=== PATIENT | female | born 1965 | race African-American/Black ===

== ENCOUNTER 2018-02-13 08:34 | Emergency (ER) | payer OTHER ==
[2018-02-13 08:47] VITALS: RESP 18; TEMP 98.1
[2018-02-13] MEDS ORDERED: methylPREDNISolone SOD SUCCI 125 MG/2 ML VIAL IV STA (09:36)
[2018-02-13] MEDS ORDERED: diphenhydrAMINE 50 MG/ML 1 ML VIAL IVP STA (09:36)
[2018-02-13 10:01] LABS: Anisocytosis Moderate; Basophils % (A) 0 %; Eosinophils # (A) 0.1 k/uL (0-0.7); Eosinophils % (A) 1 %; HCT 43.7 % (34.0-46.0); HGB 13.9 gm/dL (11.4-16.0); Lymphocytes # (A) 1.6 k/uL (1.0-4.8); Lymphocytes % (A) 15 %; MCH 30.8 pg (25.0-35.0); MCHC 31.9 g/dL (31.0-37.0); MCV 96.3 fL (80.0-100.0); Macrocytosis Moderate; Mean Platelet Volume 7.7; Monocytes # (A) 0.4 k/uL (0-1.0); Monocytes % (A) 4 %; Neutrophils # (A) 8.4 k/uL (1.3-7.7); Neutrophils % (A) 79 %; Platelet Count 156 k/uL (150-450); RBC 4.53 m/uL (3.80-5.40); RDW 22.4 % (11.5-15.5); WBC 10.6 k/uL (3.8-10.6)
[2018-02-13 10:06] LABS: ALT 32 U/L (9-52); AST 29 U/L (14-36); Albumin 3.6 g/dL (3.5-5.0); Alkaline Phosphatase 118 U/L (38-126); Anion Gap 7 mmol/L; Blood Urea Nitrogen 19 mg/dL (7-17); Calcium 9.3 mg/dL (8.4-10.2); Carbon Dioxide 28 mmol/L (22-30); Chloride 108 mmol/L (98-107); Potassium 3.3 mmol/L (3.5-5.1); Sodium 143 mmol/L (137-145); Total Bilirubin 0.5 mg/dL (0.2-1.3); Total Protein 7.1 g/dL (6.3-8.2)
--- NOTE | 2018-02-13 10:13 | ED ---
General Adult HPI - General Chief complaint: Allergic Reaction Stated complaint: POSS ALLERGIC REACTION Time Seen by Provider: 02/13/18 09:06 Source: patient, RN notes reviewed, old records reviewed Mode of arrival: ambulatory Limitations: no limitations - History of Present Illness Initial comments: This Patient is a 52-year-old female with a history of lupus presents emergency department for concerns for ALLERGIC reaction. Patient reports that she recently started CellCept to manage her lupus and rheumatoid arthritis. She was started on with this with her code enforcement officer. Patient states that she has had facial swelling for the past 2 days. She reports she had a previous ALLERGIC reaction to leflunomide last month. Patient states that at that time it is possible damage to her liver. Patient reports that she called her code enforcement officer due to the swelling of her face and they wanted her to come in for evaluation and recheck her liver enzymes and white count. Patient states that she has no tongue swelling. No difficulty breathing or swallowing. Patient denies any recent fever, chills, shortness of breath, chest pain, back pain, abdominal pain, nausea vomiting, numbness or tingling, dysuria or hematuria, constipation or diarrhea, headaches or visual changes, or any other current symptoms - Related Data Home Medications Medication Instructions Recorded Confirmed Acetaminophen [Tylenol] 500 mg PO Q6H PRN 02/13/18 02/13/18 Cholecalciferol (Vitamin D3) 2,000 unit PO DAILY 02/13/18 02/13/18 [Vitamin D3] Famotidine [Pepcid] 20 mg PO BID 02/13/18 02/13/18 Hydrocortisone Cream 1 applic TOPICAL BID 02/13/18 02/13/18 [Hydrocortisone 2.5% Cream] Levothyroxine Sodium [Synthroid] 25 mcg PO DAILY 02/13/18 02/13/18 Mycophenolate Mofetil [Cellcept] 250 mg PO Q12H 02/13/18 02/13/18 Ondansetron [Zofran ODT] 8 mg PO Q8H PRN 02/13/18 02/13/18 Triamcinolone 0.5% Cream [Kenalog 1 applic TOPICAL BID 02/13/18 02/13/18 0.5% Cream] diphenhydrAMINE [Benadryl] 25 - 50 mg PO Q6H PRN 02/13/18 02/13/18 predniSONE 30 mg PO BID 02/13/18 02/13/18 Allergies Allergy/AdvReac Type Severity Reaction Status Date / Time egg Allergy Anaphylaxis Verified 02/13/18 09:14 leflunomide Allergy Rash/Hives Verified 02/13/18 09:14 mycophenolate mofetil Allergy Unknown Verified 02/13/18 09:14 [From CellCept] Review of Systems ROS Statement: Those systems with pertinent positive or pertinent negative responses have been documented in the HPI. ROS Other: All systems not noted in ROS Statement are negative. Past Medical History Past Medical History: Rheumatoid Arthritis (RA), Thyroid Disorder Additional Past Medical History / Comment(s): abnormal transaminases, connective tissue disease overlap syndrome, Lupus History of Any Multi-Drug Resistant Organisms: None Reported Past Surgical History: Hysterectomy, Orthopedic Surgery Additional Past Surgical History / Comment(s): right ankle surgery Past Psychological History: No Psychological Hx Reported Smoking Status: Current every day smoker Past Alcohol Use History: None Reported Past Drug Use History: Marijuana General Exam - General Exam Comments Initial Comments: 52-year-old female. Alert and oriented. Patient appears in no significant distress. Limitations: no limitations General appearance: alert, in no apparent distress Head exam: Present: atraumatic, normocephalic, normal inspection Eye exam: Present: normal appearance, PERRL, EOMI. Absent: scleral icterus, conjunctival injection, periorbital swelling ENT exam: Present: normal exam, normal oropharynx, other (Mood faces consistent with chronic steroid use.) Neck exam: Present: normal inspection. Absent: tenderness, meningismus, lymphadenopathy Respiratory exam: Present: normal lung sounds bilaterally. Absent: respiratory distress, wheezes, rales, rhonchi, stridor Cardiovascular Exam: Present: regular rate, normal rhythm, normal heart sounds. Absent: systolic murmur, diastolic murmur, rubs, gallop, clicks GI/Abdominal exam: Present: soft, normal bowel sounds. Absent: distended, tenderness, guarding, rebound, rigid Extremities exam: Present: normal inspection, full ROM, normal capillary refill. Absent: tenderness, pedal edema, joint swelling, calf tenderness Back exam: Present: normal inspection Neurological exam: Present: alert, oriented X3, CN II-XII intact Psychiatric exam: Present: normal affect, normal mood Skin exam: Present: warm, dry, intact, normal color. Absent: rash Course Vital Signs 02/13/18 08:41 Temperature 98.1 F Pulse Rate 91 Respiratory 18 Rate Blood Pressure 149/99 O2 Sat by Pulse 99 Oximetry Medical Decision Making - Medical Decision Making Patient 60-year-old female with concerns for ALLERGIC reaction to CellCept. Patient had been on this medication for the past week. She stopped it 2 days ago after she started a facial swelling. Patient reports with a previous ALLERGIC reaction to other rheumatologic drug she had liver disease. Patient reports that she was sent here by her senior instrumentation engineer have his labs checked and showed some cramping again. She is currently on prednisone 60 mg and Benadryl when necessary. Patient does have some swelling of her cheeks, consistent with coronel facies. She also has a slight erythematous rash over her cheeks. The Patient had IV fluids and lab work was obtained. White blood cell count was normal. Her previous white count due to steroid use was 17 1 week ago. At this time is 10. She did have a low blood sugar of 30. When it was rechecked after lab called with critical results with 75. She was then given a snack and this will be rechecked. She states she had no significant symptoms related to low blood sugar. She has no swelling of the tongue. No difficulty breathing or swallowing. She is given a dose of IV solumedrol and Benadryl here. I did discuss at this time her liver enzymes and lab work was otherwise unremarkable. 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 - Lab Data Result diagrams: 02/13/18 09:00 02/13/18 09:00 Lab Results 02/13/18 02/13/18 Range/Units 09:00 09:00 WBC 10.6 (3.8-10.6) k/uL RBC 4.53 (3.80-5.40) m/uL Hgb 13.9 (11.4-16.0) gm/dL Hct 43.7 (34.0-46.0) % MCV 96.3 (80.0-100.0) fL MCH 30.8 (25.0-35.0) pg MCHC 31.9 (31.0-37.0) g/dL RDW 22.4 H (11.5-15.5) % Plt Count 156 (150-450) k/uL Neutrophils % 79 % Lymphocytes % 15 % Monocytes % 4 % Eosinophils % 1 % Basophils % 0 % Neutrophils # 8.4 H (1.3-7.7) k/uL Lymphocytes # 1.6 (1.0-4.8) k/uL Monocytes # 0.4 (0-1.0) k/uL Eosinophils # 0.1 (0-0.7) k/uL Basophils # 0.0 (0-0.2) k/uL Anisocytosis Moderate Macrocytosis Moderate Sodium 143 (137-145) mmol/L Potassium 3.3 L (3.5-5.1) mmol/L Chloride 108 H (98-107) mmol/L Carbon Dioxide 28 (22-30) mmol/L Anion Gap 7 mmol/L BUN 19 H (7-17) mg/dL Creatinine 0.57 (0.52-1.04) mg/dL Est GFR (CKD-EPI)AfAm >90 (>60 ml/min/1.73 sqM) Est GFR (CKD-EPI)NonAf >90 (>60 ml/min/1.73 sqM) Glucose 35 L* (74-99) mg/dL Calcium 9.3 (8.4-10.2) mg/dL Total Bilirubin 0.5 (0.2-1.3) mg/dL AST 29 (14-36) U/L ALT 32 (9-52) U/L Alkaline Phosphatase 118 (38-126) U/L Total Protein 7.1 (6.3-8.2) g/dL Albumin 3.6 (3.5-5.0) g/dL Disposition Clinical Impression: Hypoglycemia, Allergic reaction Disposition: HOME SELF-CARE Condition: Good Instructions: General Allergic Reaction (ED) Additional Instructions: Continue as prescribed steroids from code enforcement officer. Follow-up promptly with dermatology and primary care physician. Return to emergency department if any alarming signs or symptoms occur. Is patient prescribed a controlled substance at d/c from ED?: No Referrals: Nonstaff,Physician [Primary Care Provider] - 1-2 days Time of Disposition: 10:43
[2018-02-13 10:22] LABS: Glucose 35 mg/dL (74-99)
[2018-02-13 10:48] LABS: Glucose,Whole Blood 74 mg/dL (75-99)
[2018-02-13 11:03] VITALS: BP 144/84; PULSE 87
== END 2018-02-13 11:03 | disposition home or self-care (01) ==
LOC: EC 08:34
DX: T78.40XA Allergy, unspecified, initial encounter (principal); E16.2 Hypoglycemia, unspecified; M06.9 Rheumatoid arthritis, unspecified; E07.9 Disorder of thyroid, unspecified; M32.9 Systemic lupus erythematosus, unspecified; F17.200 Nicotine dependence, unspecified, uncomplicated; Z79.52 Long term (current) use of systemic steroids; Z79.899 Other long term (current) drug therapy; Z91.012 Allergy to eggs; Z88.8 Allergy status to other drugs, medicaments and biological substances
CPT/HCPCS: 36415; 80053; 85025; 96374; 96375; 99284

== ENCOUNTER → 2018-04-27 | Outpatient (CLI) | payer OTHER ==
[2018-04-27 21:32] LABS: DNA Double-Stranded NEGATIVE (NEGATIVE)
[2018-04-28 13:14] LABS: Complement C3 69.1 mg/dL (80.0-207.0)
== END | disposition home or self-care (01) ==
LOC: LABWHC1 11:14
DX: M32.9 Systemic lupus erythematosus, unspecified (principal)
CPT/HCPCS: 36415; 82550; 85652; 86160; 86225

== ENCOUNTER → 2018-05-01 | Outpatient (CLI) | payer OTHER ==
[2018-05-01 08:07] LABS: Basophils % (A) 0 %; Eosinophils % (A) 0 %; HCT 44.2 % (34.0-46.0); HGB 14.7 gm/dL (11.4-16.0); Lymphocytes # (A) 1.7 k/uL (1.0-4.8); Lymphocytes % (A) 16 %; MCH 33.4 pg (25.0-35.0); MCHC 33.3 g/dL (31.0-37.0); MCV 100.3 fL (80.0-100.0); Macrocytosis Slight; Mean Platelet Volume 7.1; Monocytes # (A) 0.3 k/uL (0-1.0); Monocytes % (A) 3 %; Neutrophils # (A) 8.2 k/uL (1.3-7.7); Neutrophils % (A) 80 %; Platelet Count 169 k/uL (150-450); RBC 4.41 m/uL (3.80-5.40); WBC 10.3 k/uL (3.8-10.6)
[2018-05-01 12:46] LABS: Hemoglobin A1C 6.1 % (4.0-6.0)
[2018-05-01 17:36] LABS: Vitamin D 25 Hydroxy 28.4 ng/mL (30.0-100.0)
[2018-05-01 18:17] LABS: ALT 26 U/L (8-44); AST 24 U/L (13-35); Albumin/Globulin Ratio 1.68 (1.60-3.17); Alkaline Phosphatase 95 U/L (41-126); C Reactive Protein <0.4 mg/dL (0.0-0.8); Calcium 9.1 mg/dL (8.7-10.3); Carbon Dioxide 28.2 mmol/L (21.6-31.8); Chloride 109 mmol/L (96-109); Cholesterol 192 mg/dL (0-200); Globulin 2.2 g/dL (1.6-3.3); Glucose 107 mg/dL (70-110); LDL Cholesterol,Calculated 119.2 mg/dL (0.0-131.0); Potassium 3.9 mmol/L (3.5-5.5); Sodium 144 mmol/L (135-145); Total Bilirubin 0.3 mg/dL (0.2-1.2); Total Protein 5.9 g/dL (6.2-8.2); Uric Acid 6.1 mg/dL (2.9-7.7)
== END | disposition home or self-care (01) ==
LOC: LABWHC1 07:27
PROVIDERS: ATTEND Internal Medicine
DX: R73.9 Hyperglycemia, unspecified (principal); M85.80 Other specified disorders of bone density and structure, unspecified site; R21 Rash and other nonspecific skin eruption; M32.9 Systemic lupus erythematosus, unspecified
CPT/HCPCS: 36415; 80053; 80061; 82306; 82607; 83036; 84439; 84443; 84481; 84550; 85025; 86140

== ENCOUNTER → 2018-05-19 | Outpatient (CLI) | payer OTHER ==
--- NOTE | 2018-05-19 17:18 | BD ---
EXAMINATION TYPE: Axial Bone Density DATE OF EXAM: 05/19/2018 COMPARISON: NONE CLINICAL HISTORY: 52-year-old female osteopenia Height: 65.2 IN Weight: 183 LBS FRAX RISK QUESTIONS: Glucocorticoids (More than 3mos): YES 30 MG PREDNISONE DAILY FOR 6 MONTHS (Ex: prednisone, prednisolone, methylprednisolone, dexamethasone, and hydrocortisone). Secondary Osteoporosis: 3. Menopause before 45: PARTIAL HYST AGE 40 Rheumatoid Arthritis: YES RISK FACTORS HISTORY OF: Active: YES Postmenopausal woman: YES PARTIAL HYST AGE 40 MEDICATIONS: Prednisone or other steroids: YES 30 MG PREDNISONE DAILY SINCE 2017 Thyroid Medications: YES Which medication: Levothyroxine How Lon MONTHS Additional Medications: VIT D, LEVOTHYROXINE, 30 MG PREDNISONE DAILY, PEPCID, PACQUNIL, BLOOD PRESSUR E MEDS, EXAM MEASUREMENTS: Bone mineral densitometry was performed using the [id number] System. Bone mineral density as measured about the Lumbar spine is: ----- L1-L4(G/cm2): 1.030 T Score Values are as follows: ----- L2: -1.3 ----- L3: -1.6 ----- L4: -1.5 ----- L1-L4: -1.3 Bone mineral density BASELINE Bone mineral density about the R hip (g/cm2): 0.839 Bone mineral density about the L hip (g/cm2): 0.914 T Score values are as follows: -----R Neck: -1.4 -----L Neck: -0.9 -----R Total: -1.6 -----L Total: -1.4 Bone mineral density BASELINE IMPRESSION: Osteopenia (T Score between -2.5 and -1). There is slightly increased risk of fracture and the patient may be considered for treatment. Re-Screen 2-5 years. NOTE: T-SCORE=SD OF THE YOUNG ADULT MEAN.
== END ==
LOC: RADBDWWP 07:34
PROVIDERS: ATTEND Internal Medicine
DX: M85.80 Other specified disorders of bone density and structure, unspecified site (principal)
CPT/HCPCS: 77080

== ENCOUNTER → 2018-06-24 | Outpatient (CLI) | payer OTHER ==
--- NOTE | 2018-06-24 09:54 | MR ---
EXAMINATION TYPE: MR brain wo con DATE OF EXAM: 06/24/2018 COMPARISON: None HISTORY: Vertigo With Double Vision Standard multiplanar, multisequence MRI departmental protocol Multiplanar, multisequence images of the brain were acquired. Diffusion weighted imaging was performe d. FINDINGS: There is a small focal 5 mm area of increased signal within the lateral cortex the right pa rietal lobe on diffusion imaging suggestive of an area of acute to subacute ischemia. Report called t o the patient's office. This does correspond to an area of abnormal signal seen on FLAIR imaging. No midline shift or mass effect. Mild changes of chronic sinusitis. Craniocervical junction maintained. Sella turcica has a normal appearance. White matter: There are approximately 7 areas of abnormal signal within the white matter all measurin g less than 5 mm. No lesions perpendicular to ventricular system. No callosal lesions. IMPRESSION: 1. Findings are suspicious for a 5 mm area of acute to subacute ischemia right lateral superior parie justine cortex. Report called to referring physician. 2. Nonspecific mild white matter changes can be seen with migraine headaches, hypertension, demyelina ting process or remote microvascular ischemia.
--- NOTE | 2018-06-24 11:23 | MR ---
EXAMINATION TYPE: MR angio head wo/neck wo/w con DATE OF EXAM: 06/24/2018 9:42 AM COMPARISON: NONE HISTORY: Vertigo With Double Vision Three-dimensional [id number] intracranial MRA was performed with multiple intensity projection im ages submitted and source data reviewed at the workstation. The vertebrobasilar system as well as intracranial portions of the internal carotid arteries and thei r major tributaries are patent. I do not see evidence for sizable aneurysm or vascular malformation. IMPRESSION: Normal study. EXAMINATION TYPE: MR angio head wo/neck wo/w con DATE OF EXAM: 06/24/2018 9:42 AM COMPARISON: NONE HISTORY: Vertigo With Double Vision Three-dimensional [id number] cervical carotid MRA was performed with multiple intensity projectio n images submitted and source data reviewed at the workstation. Pre and post contrast enhanced image s obtained. 9 mL Gadavist administered. Right carotid system: There is mild plaque seen about the common carotid artery. Mild plaque is also seen at the origin and proximal aspect of the right internal carotid artery. Stenosis is estimated at less than 50%. No hemodynamically significant stenosis is appreciated. Right external carotid ar anila right vertebral artery are patent. Left carotid system: Mild plaque involving the left common carotid artery. Minimal to mild plaque or igin left ICA. No hemodynamically significant stenosis is appreciated. External carotid artery and the left vertebral artery are patent. IMPRESSION: 1. No hemodynamically significant stenosis is appreciated at this time.
== END ==
LOC: RADMRIMAIN 08:19
PROVIDERS: ATTEND Internal Medicine
DX: G43.909 Migraine, unspecified, not intractable, without status migrainosus (principal); R90.89 Other abnormal findings on diagnostic imaging of central nervous system; I10 Essential (primary) hypertension
CPT/HCPCS: 70544; 70549; 70551; A9585

== ENCOUNTER → 2018-06-24 | Outpatient (CLI) | payer OTHER | LOC: LABWHC1 07:29 | PROVIDERS: ATTEND Internal Medicine Rheumatology | DX: M32.9 Systemic lupus erythematosus, unspecified (principal) | CPT/HCPCS: 36415; 82533 ==

== ENCOUNTER → 2018-07-21 | Outpatient (CLI) | payer OTHER ==
--- NOTE | 2018-07-21 17:21 | ECHOF ---
Referral Reason:R94.31 Abnormal EKG MEASUREMENTS -------- HEIGHT: 165.1 cm WEIGHT: 84.8 kg BP: IVSd: 1.2 cm (0.6 - 1.1) LVIDd: 3.1 cm (3.9 - 5.3) LVPWd: 1.3 cm (0.6 - 1.1) IVSs: 1.7 cm LVIDs: 2.0 cm LVPWs: 1.8 cm LAESV Index (A-L): 14.97 ml/m Ao Diam: 3.2 cm (2.0 - 3.7) LA Diam: 2.8 cm (2.7 - 3.8) AV Cusp: 2.1 cm (1.5 - 2.6) EPSS: 0.6 cm MV E Jed: 0.51 m/s MV DecT: 196 ms MV A Jed: 0.80 m/s MV E/A Ratio: 0.63 RAP: 5.00 mmHg RVSP: 10.82 mmHg MV EF SLOPE: 78.36 mm/s (70 - 150) MV EXCURSION: 15.62 mm (> 18.000) FINDINGS -------- Sinus rhythm. This was a technically good study. The left ventricular size is normal. There is mild concentric left ventricular hypertrophy. Overa ll left ventricular systolic function is normal with, an EF between 55 - 60 %. The right ventricle is normal in size. Normal LA size by volume 22+/-6 ml/m2. The right atrial size is normal. Interatrial and interventricular septum intact. Bubble study to rule out shunt. No shunt seen. The aortic valve is trileaflet and appears structurally normal. The mitral valve leaflets are mildly thickened. Mild mitral annular calcification present. Mild m itral regurgitation is present. Mild tricuspid regurgitation present. The right ventricular systolic pressure, as measured by Doppl er, is 10.82mmHg. There is no pulmonic regurgitation present. The aortic root size is normal. Normal inferior vena cava with normal inspiratory collapse consistent with estimated right atrial pre ssure of 5 mmHg. There is no pericardial effusion. CONCLUSIONS -------- 1. Sinus rhythm. 2. This was a technically good study. 3. The left ventricular size is normal. 4. There is mild concentric left ventricular hypertrophy. 5. Overall left ventricular systolic function is normal with, an EF between 55 - 60 %. 6. The right ventricle is normal in size. 7. Normal LA size by volume 22+/-6 ml/m2. 8. The right atrial size is normal. 9. Interatrial and interventricular septum intact. 10. Bubble study to rule out shunt. No shunt seen. 11. The aortic valve is trileaflet and appears structurally normal. 12. The mitral valve leaflets are mildly thickened. 13. Mild mitral annular calcification present. 14. Mild mitral regurgitation is present. 15. Mild tricuspid regurgitation present. 16. The right ventricular systolic pressure, as measured by Doppler, is 10.82mmHg. 17. There is no pulmonic regurgitation present. 18. The aortic root size is normal. 19. Normal inferior vena cava with normal inspiratory collapse consistent with estimated right atrial pressure of 5 mmHg. 20. There is no pericardial effusion. GENERAL MILLING SUPERINTENDENT: Frieda Simon RDCS
== END | disposition home or self-care (01) ==
LOC: RADECHMAIN 10:33
PROVIDERS: ATTEND Internal Medicine
DX: I08.1 Rheumatic disorders of both mitral and tricuspid valves (principal)
CPT/HCPCS: 93306

== ENCOUNTER → 2018-08-19 | Outpatient (CLI) | payer OTHER ==
[2018-08-19 08:33] LABS: Basophils % (A) 0 %; Eosinophils # (A) 0.2 k/uL (0-0.7); Eosinophils % (A) 3 %; HCT 41.4 % (34.0-46.0); HGB 13.1 gm/dL (11.4-16.0); Lymphocytes # (A) 1.4 k/uL (1.0-4.8); Lymphocytes % (A) 21 %; MCH 30.1 pg (25.0-35.0); MCHC 31.7 g/dL (31.0-37.0); MCV 95.1 fL (80.0-100.0); Monocytes # (A) 0.3 k/uL (0-1.0); Monocytes % (A) 4 %; Neutrophils # (A) 4.5 k/uL (1.3-7.7); Neutrophils % (A) 69 %; Platelet Count 215 k/uL (150-450); RBC 4.35 m/uL (3.80-5.40); RDW 14.1 % (11.5-15.5); WBC 6.5 k/uL (3.8-10.6)
[2018-08-19 11:32] LABS: Albumin 3.7 g/dL (3.80-4.90); Albumin/Globulin Ratio 1.32 (1.60-3.17); Anion Gap 10.3 mmol/L (4.00-12.00); C Reactive Protein 0.9 mg/dL (0.0-0.8); Carbon Dioxide 24.7 mmol/L (21.6-31.8); Globulin 2.8 g/dL (1.6-3.3); LDL Cholesterol,Calculated 66.4 mg/dL (0.0-131.0); Potassium 3.3 mmol/L (3.5-5.5); Total Bilirubin 0.2 mg/dL (0.3-1.2); Total Protein 6.5 g/dL (6.2-8.2); Uric Acid 6.5 mg/dL (2.9-7.7); VLDL Calculation 43.6 mg/dL (5.00-40.00)
[2018-08-19 12:32] LABS: Vitamin D 25 Hydroxy 25.8 ng/mL (30.0-100.0)
[2018-08-19 13:35] LABS: DNA Double-Stranded NEGATIVE (NEGATIVE)
[2018-08-19 14:45] LABS: Complement C3 58.7 mg/dL (80.0-207.0)
[2018-08-19 15:11] LABS: Hemoglobin A1C 5.8 % (4.0-6.0)
[2018-08-20 11:55] LABS: ANA Pattern Speckled
== END | disposition home or self-care (01) ==
LOC: LABWHC1 06:44
PROVIDERS: ATTEND Internal Medicine
DX: M32.9 Systemic lupus erythematosus, unspecified (principal); E24.9 Cushing's syndrome, unspecified; I10 Essential (primary) hypertension; Z86.73 Personal history of transient ischemic attack (TIA), and cerebral infarction without residual deficits
CPT/HCPCS: 36415; 80053; 80061; 82306; 82607; 83036; 84550; 85025; 86038; 86039; 86140; 86160; 86225

== ENCOUNTER → 2018-10-01 | Outpatient (CLI) | payer OTHER ==
[2018-10-01 09:22] LABS: Basophils % (A) 1 %; Eosinophils # (A) 0.2 k/uL (0-0.7); Eosinophils % (A) 3 %; HCT 44.2 % (34.0-46.0); HGB 14.2 gm/dL (11.4-16.0); Lymphocytes # (A) 1.2 k/uL (1.0-4.8); Lymphocytes % (A) 21 %; MCH 29.6 pg (25.0-35.0); MCHC 32.1 g/dL (31.0-37.0); MCV 92.3 fL (80.0-100.0); Mean Platelet Volume 8.6; Monocytes # (A) 0.3 k/uL (0-1.0); Monocytes % (A) 5 %; Neutrophils % (A) 68 %; Platelet Count 211 k/uL (150-450); RBC 4.79 m/uL (3.80-5.40); RDW 13.9 % (11.5-15.5); WBC 5.9 k/uL (3.8-10.6)
[2018-10-01 17:00] LABS: African American GFR (CKD) 84.6 (60.0-200.0); Albumin 3.9 g/dL (3.80-4.90); Albumin/Globulin Ratio 1.34 (1.60-3.17); Anion Gap 6.9 mmol/L (4.00-12.00); BUN/Creat Ratio 15.56 Ratio (12.00-20.00); Calcium 9.5 mg/dL (8.7-10.3); Carbon Dioxide 26.1 mmol/L (21.6-31.8); Globulin 2.9 g/dL (1.6-3.3); LDL Cholesterol,Calculated 102.8 mg/dL (0.0-131.0); Potassium 3.6 mmol/L (3.5-5.5); Total Bilirubin 0.3 mg/dL (0.3-1.2); Total Protein 6.8 g/dL (6.2-8.2); Uric Acid 7.6 mg/dL (2.9-7.7); VLDL Calculation 24.2 mg/dL (5.00-40.00)
[2018-10-01 17:07] LABS: T4, Free (Free Thyroxine) 1.2 ng/dL (0.80-1.80)
[2018-10-01 18:59] LABS: Hemoglobin A1C 5.7 % (4.0-6.0)
== END | disposition home or self-care (01) ==
LOC: LABWHC1 08:27
PROVIDERS: ATTEND Internal Medicine
DX: I10 Essential (primary) hypertension (principal); R73.9 Hyperglycemia, unspecified; M32.9 Systemic lupus erythematosus, unspecified; E24.9 Cushing's syndrome, unspecified
CPT/HCPCS: 36415; 80053; 80061; 82306; 83036; 84439; 84443; 84481; 84550; 85025; 86140

== ENCOUNTER → 2018-11-04 | Outpatient (CLI) | payer OTHER ==
[2018-11-04 08:00] LABS: Basophils % (A) 0 %; Eosinophils # (A) 0.2 k/uL (0-0.7); Eosinophils % (A) 2 %; HCT 41.6 % (34.0-46.0); HGB 13.6 gm/dL (11.4-16.0); Lymphocytes # (A) 1.5 k/uL (1.0-4.8); Lymphocytes % (A) 24 %; MCH 30.3 pg (25.0-35.0); MCHC 32.7 g/dL (31.0-37.0); MCV 92.5 fL (80.0-100.0); Mean Platelet Volume 8.6; Monocytes # (A) 0.2 k/uL (0-1.0); Monocytes % (A) 4 %; Neutrophils # (A) 4.3 k/uL (1.3-7.7); Neutrophils % (A) 68 %; Platelet Count 206 k/uL (150-450); RDW 15.3 % (11.5-15.5); WBC 6.4 k/uL (3.8-10.6)
[2018-11-04 09:53] LABS: Erythrocyte Sedimentation Rate 13 mm/hr (0-20)
[2018-11-04 13:29] LABS: African American GFR (CKD) 84.6 (60.0-200.0); Albumin 3.7 g/dL (3.80-4.90); Total Bilirubin 0.2 mg/dL (0.3-1.2)
[2018-11-04 13:40] LABS: Complement C3 64.4 mg/dL (80.0-207.0)
[2018-11-04 15:09] LABS: DNA Double-Stranded NEGATIVE (NEGATIVE)
== END | disposition home or self-care (01) ==
LOC: LABWHC1 07:25
PROVIDERS: ATTEND Internal Medicine Rheumatology
DX: M32.9 Systemic lupus erythematosus, unspecified (principal)
CPT/HCPCS: 36415; 82040; 82247; 82565; 84075; 84450; 84460; 84520; 85025; 85652; 86160; 86225

== ENCOUNTER → 2019-01-13 | Outpatient (CLI) | payer OTHER ==
[2019-01-13 11:56] LABS: Basophils # (A) 0.1 k/uL (0-0.2); Basophils % (A) 2 %; Eosinophils # (A) 0.1 k/uL (0-0.7); Eosinophils % (A) 2 %; HCT 44.3 % (34.0-46.0); HGB 14.8 gm/dL (11.4-16.0); Lymphocytes # (A) 1.2 k/uL (1.0-4.8); Lymphocytes % (A) 14 %; MCH 30.8 pg (25.0-35.0); MCHC 33.4 g/dL (31.0-37.0); MCV 92.3 fL (80.0-100.0); Mean Platelet Volume 7.6; Monocytes # (A) 0.5 k/uL (0-1.0); Monocytes % (A) 6 %; Neutrophils # (A) 6.1 k/uL (1.3-7.7); Neutrophils % (A) 75 %; Platelet Count 206 k/uL (150-450); RDW 14.4 % (11.5-15.5); WBC 8.2 k/uL (3.8-10.6)
[2019-01-13 16:16] LABS: African American GFR (CKD) 84.6 (60.0-200.0); Albumin 4.2 g/dL (3.80-4.90); Albumin/Globulin Ratio 1.68 (1.60-3.17); Anion Gap 8.1 mmol/L (4.00-12.00); BUN/Creat Ratio 13.33 Ratio (12.00-20.00); Calcium 9.4 mg/dL (8.7-10.3); Carbon Dioxide 28.9 mmol/L (21.6-31.8); Chol/HDL Ratio 3.76; Globulin 2.5 g/dL (1.6-3.3); LDL Cholesterol,Calculated 92.6 mg/dL (0.0-131.0); Potassium 3.8 mmol/L (3.5-5.5); Total Bilirubin 0.4 mg/dL (0.2-1.2); Total Protein 6.7 g/dL (6.2-8.2); Uric Acid 6.3 mg/dL (2.9-7.7); VLDL Calculation 31.4 mg/dL (5.00-40.00)
[2019-01-13 16:25] LABS: T4, Free (Free Thyroxine) 1.1 ng/dL (0.80-1.80)
[2019-01-13 18:21] LABS: Hemoglobin A1C 5.6 % (4.0-6.0)
== END | disposition home or self-care (01) ==
LOC: LABWHC1 10:22
PROVIDERS: ATTEND Internal Medicine
DX: I10 Essential (primary) hypertension (principal); E03.9 Hypothyroidism, unspecified; Z86.73 Personal history of transient ischemic attack (TIA), and cerebral infarction without residual deficits
CPT/HCPCS: 36415; 80053; 80061; 82306; 82607; 83036; 84439; 84443; 84481; 84550; 85025

== ENCOUNTER → 2019-10-14 | Outpatient (CLI) | payer MEDICAID ==
[2019-10-14 08:15] LABS: Basophils # (A) 0.1 k/uL (0-0.2); Basophils % (A) 1 %; Eosinophils # (A) 0.2 k/uL (0-0.7); Eosinophils % (A) 3 %; HCT 42.2 % (34.0-46.0); HGB 13.6 gm/dL (11.4-16.0); Lymphocytes # (A) 1.2 k/uL (1.0-4.8); Lymphocytes % (A) 22 %; MCH 30.5 pg (25.0-35.0); MCHC 32.2 g/dL (31.0-37.0); MCV 94.5 fL (80.0-100.0); Mean Platelet Volume 9.3; Monocytes # (A) 0.4 k/uL (0-1.0); Monocytes % (A) 7 %; Neutrophils # (A) 3.8 k/uL (1.3-7.7); Neutrophils % (A) 66 %; Platelet Count 142 k/uL (150-450); RBC 4.47 m/uL (3.80-5.40); WBC 5.8 k/uL (3.8-10.6)
[2019-10-14 11:52] LABS: African American GFR (CKD) 96.9 (60.0-200.0); Albumin 3.9 g/dL (3.80-4.90); Albumin/Globulin Ratio 1.86 (1.60-3.17); Anion Gap 5.9 mmol/L (4.00-12.00); BUN/Creat Ratio 17.5 Ratio (12.00-20.00); Calcium 9.2 mg/dL (8.7-10.3); Carbon Dioxide 27.1 mmol/L (21.6-31.8); Chol/HDL Ratio 3.79; Globulin 2.1 g/dL (1.6-3.3); LDL Cholesterol,Calculated 87.6 mg/dL (0.0-131.0); Non-African American GFR(CKD) 83.6 (60.0-200.0); Potassium 3.6 mmol/L (3.5-5.5); Total Bilirubin 0.3 mg/dL (0.3-1.2); Uric Acid 6.5 mg/dL (2.9-7.7); VLDL Calculation 21.4 mg/dL (5.00-40.00)
[2019-10-14 12:00] LABS: T4, Free (Free Thyroxine) 1.1 ng/dL (0.80-1.80)
[2019-10-14 12:48] LABS: Complement C3 78.2 mg/dL (80.0-207.0)
[2019-10-14 17:09] LABS: Erythrocyte Sedimentation Rate 10 mm/Hr (0-30)
[2019-10-14 17:56] LABS: Cardiolipin Ab IgG Interp NEGATIVE (NEGATIVE); Cardiolipin Ab IgM Interp NEGATIVE (NEGATIVE); Cardiolipin IgM Antibody 0.7 U/mL; DNA Double-Stranded NEGATIVE (NEGATIVE)
== END | disposition home or self-care (01) ==
LOC: LABWHC1 07:20
PROVIDERS: ATTEND Internal Medicine
DX: M32.9 Systemic lupus erythematosus, unspecified (principal); D84.1 Defects in the complement system; I10 Essential (primary) hypertension; Z86.69 Personal history of other diseases of the nervous system and sense organs; E78.5 Hyperlipidemia, unspecified; Z79.899 Other long term (current) drug therapy; Z79.52 Long term (current) use of systemic steroids
CPT/HCPCS: 36415; 80053; 80061; 82306; 82607; 84439; 84443; 84481; 84550; 85025; 85652; 86140; 86147; 86160; 86225

== ENCOUNTER → 2020-02-02 | Outpatient (CLI) | payer MEDICARE, OTHER ==
[2020-02-02 14:12] LABS: Basophils # (A) 0.1 k/uL (0-0.2); Basophils % (A) 1 %; Eosinophils # (A) 0.3 k/uL (0-0.7); Eosinophils % (A) 5 %; HCT 43.8 % (34.0-46.0); HGB 14.7 gm/dL (11.4-16.0); Lymphocytes # (A) 0.8 k/uL (1.0-4.8); Lymphocytes % (A) 10 %; MCH 31.8 pg (25.0-35.0); MCHC 33.4 g/dL (31.0-37.0); MCV 95.2 fL (80.0-100.0); Mean Platelet Volume 9.4; Monocytes # (A) 0.3 k/uL (0-1.0); Monocytes % (A) 4 %; Neutrophils # (A) 5.5 k/uL (1.3-7.7); Neutrophils % (A) 76 %; Platelet Count 158 k/uL (150-450); RBC 4.61 m/uL (3.80-5.40); RDW 14.4 % (11.5-15.5); WBC 7.2 k/uL (3.8-10.6)
[2020-02-02 18:54] LABS: T4, Free (Free Thyroxine) 1.1 ng/dL (0.80-1.80)
[2020-02-02 19:20] LABS: Hemoglobin A1C 5.6 % (4.0-6.0)
[2020-02-02 19:43] LABS: African American GFR (CKD) 96.9 (60.0-200.0); Albumin 4.2 g/dL (3.80-4.90); Albumin/Globulin Ratio 1.83 (1.60-3.17); Anion Gap 4.1 mmol/L (4.00-12.00); BUN/Creat Ratio 13.75 Ratio (12.00-20.00); Calcium 9.8 mg/dL (8.7-10.3); Carbon Dioxide 28.9 mmol/L (21.6-31.8); Chol/HDL Ratio 4.3; Globulin 2.3 g/dL (1.6-3.3); Non-African American GFR(CKD) 83.6 (60.0-200.0); Potassium 3.6 mmol/L (3.5-5.5); Total Bilirubin 0.4 mg/dL (0.2-1.2); Total Protein 6.5 g/dL (6.2-8.2); Uric Acid 6.4 mg/dL (2.9-7.7)
== END | disposition home or self-care (01) ==
LOC: LABWHC1 13:09
PROVIDERS: ATTEND Internal Medicine Rheumatology
DX: M32.9 Systemic lupus erythematosus, unspecified (principal); D84.1 Defects in the complement system; I10 Essential (primary) hypertension; E78.5 Hyperlipidemia, unspecified; Z86.73 Personal history of transient ischemic attack (TIA), and cerebral infarction without residual deficits; Z79.52 Long term (current) use of systemic steroids; Z79.899 Other long term (current) drug therapy; R73.9 Hyperglycemia, unspecified; E05.90 Thyrotoxicosis, unspecified without thyrotoxic crisis or storm
CPT/HCPCS: 36415; 80053; 80061; 82306; 82607; 83036; 84439; 84443; 84481; 84550; 85025

== ENCOUNTER → 2020-04-04 | Outpatient (CLI) | payer MEDICARE, OTHER ==
[2020-04-04 12:06] LABS: Basophils # (A) 0.1 k/uL (0-0.2); Basophils % (A) 0 %; Eosinophils # (A) 0.1 k/uL (0-0.7); Eosinophils % (A) 1 %; HCT 41.8 % (34.0-46.0); HGB 13.9 gm/dL (11.4-16.0); Lymphocytes # (A) 0.9 k/uL (1.0-4.8); Lymphocytes % (A) 8 %; MCH 31.4 pg (25.0-35.0); MCHC 33.3 g/dL (31.0-37.0); MCV 94.2 fL (80.0-100.0); Mean Platelet Volume 9.2; Monocytes # (A) 0.4 k/uL (0-1.0); Monocytes % (A) 4 %; Neutrophils # (A) 9.3 k/uL (1.3-7.7); Neutrophils % (A) 87 %; Platelet Count 163 k/uL (150-450); RBC 4.44 m/uL (3.80-5.40); WBC 10.8 k/uL (3.8-10.6)
[2020-04-04 12:20] LABS: ALT 12 U/L (4-34); AST 20 U/L (14-36); African American GFR (CKD) >90 (>60 ml/min/1.73 sqM); Alkaline Phosphatase 79 U/L (38-126); Anion Gap 6 mmol/L; Blood Urea Nitrogen 12 mg/dL (7-17); Calcium 10.1 mg/dL (8.4-10.2); Carbon Dioxide 31 mmol/L (22-30); Chloride 105 mmol/L (98-107); Cholesterol 199 mg/dL (<200); Glucose 86 mg/dL (74-99); HDL Cholesterol 62 mg/dL (40-60); LDL Cholesterol,Calculated 111 mg/dL (0-99); Non-African American GFR(CKD) 79 (>60 ml/min/1.73 sqM); Potassium 3.7 mmol/L (3.5-5.1); Sodium 142 mmol/L (137-145); Total Bilirubin 0.5 mg/dL (0.2-1.3); Total Protein 6.9 g/dL (6.3-8.2); Triglycerides 130 mg/dL (<150); Uric Acid 5.5 mg/dL (3.7-7.4)
[2020-04-04 12:36] LABS: T4, Free (Free Thyroxine) 1.26 ng/dL (0.78-2.19)
--- NOTE | 2020-04-04 13:15 | XR ---
Right knee HISTORY: Trauma 2 weeks prior, pain 2 views of the right knee There is a lucency involving the lateral femoral condyle, distortion noted of the femoral condyle the undersurface on the lateral exam. Some sclerosis associated sclerosis is present along the distal fe mur and proximal tibia. Suprapatellar increased attenuation is consistent with joint effusion. There is anatomic alignment, joint spaces are maintained. IMPRESSION: Findings may represent an osteochondral fracture, there may be bone contusions, microtrab ecular fractures involving the knee with joint effusion. Consider knee MRI for better evaluation. Rep ort relayed to the office of Dr. Kimble at the time of interpretation
[2020-04-04 21:36] LABS: Hemoglobin A1C 5.5 % (4.0-6.0)
[2020-04-04 22:43] LABS: Folate, Serum >24.0 ng/mL
== END | disposition home or self-care (01) ==
LOC: RADXRMAIN 10:45
PROVIDERS: ATTEND Internal Medicine
DX: M25.561 Pain in right knee (principal); R93.7 Abnormal findings on diagnostic imaging of other parts of musculoskeletal system; M81.8 Other osteoporosis without current pathological fracture; R73.9 Hyperglycemia, unspecified; I10 Essential (primary) hypertension; E03.9 Hypothyroidism, unspecified; E78.5 Hyperlipidemia, unspecified; Z87.828 Personal history of other (healed) physical injury and trauma
CPT/HCPCS: 36415; 80053; 80061; 82306; 82607; 82746; 83036; 84439; 84443; 84481; 84550; 85025

== ENCOUNTER 2020-07-12 07:47 | Day surgery (SDC) | payer MEDICARE, OTHER ==
[2020-07-10 14:12] VITALS: BMI 28.6
[~2020-07-12 07:47] MED LIST: LIDOCAINE 1% (10MG/ML) FOR IV START INTRADERMA PRN
[2020-07-12] MEDS: LACTATED RINGERS 1,000 ML IV SCH ×2 (08:01→08:20)
[2020-07-12 08:13] VITALS: RESP 16; TEMP 96.9
[2020-07-12 08:23] LABS: Glucose,Whole Blood 93 mg/dL (75-99)
[2020-07-12] MEDS ORDERED: PROPOFOL 10 MG/ML 20 ML VIAL IV ONE (09:07)
--- NOTE | 2020-07-12 09:24 | P.PCN ---
Date of Procedure: 07/12/20 Procedure(s) Performed: BRIEF HISTORY: Patient is a 55-year-old pleasant white female scheduled for an elective colonoscopy as a part of screening for colorectal neoplasia. PROCEDURE PERFORMED: Colonoscopy. PREOPERATIVE DIAGNOSIS: Screening for colon cancer. IV sedation per Anesthesia. PROCEDURE: After informed consent was obtained, the patient, was brought into the endoscopy unit. IV sedation was administered by Anesthesia under continuous monitoring. Digital rectal examination was normal. Initially the Olympus CF-160 flexible video colonoscope was then inserted in the rectum, gradually advanced into the cecum without any difficulty. Careful examination was performed as the scope was gradually being withdrawn. Ileocecal valve and the appendiceal orifice were visualized and appeared normal. Prep was excellent. Mucosa of the cecum, ascending colon, transverse colon, descending colon, sigmoid colon, and rectum appeared normal. Retroflexion was performed in the rectum and no lesions were seen. The patient tolerated the procedure well. IMPRESSION: Normal-appearing colon from rectum to cecum no evidence of colorectal neoplasia . RECOMMENDATIONS: Findings of this examination were discussed with the patient as well as a family. She was advised to have a repeat screening colonoscopy in 10 years..
[2020-07-12 09:46] VITALS: BP 136/87; PULSE 74
== END 2020-07-12 10:05 | disposition home or self-care (01) ==
LOC: ORWHC2ENDO 07:47
PROVIDERS: ATTEND Internal Medicine Gastroenterology
DX: Z12.11 Encounter for screening for malignant neoplasm of colon (principal); M06.9 Rheumatoid arthritis, unspecified; Z90.710 Acquired absence of both cervix and uterus; Z79.899 Other long term (current) drug therapy; Z79.890 Hormone replacement therapy; Z88.8 Allergy status to other drugs, medicaments and biological substances; Z91.012 Allergy to eggs
CPT/HCPCS: J2704; G0121; 45378

== ENCOUNTER → 2021-03-08 | Outpatient (CLI) | payer MEDICARE, OTHER ==
--- NOTE | 2021-03-09 07:38 | MR ---
EXAMINATION TYPE: MR brain wo con DATE OF EXAM: 03/08/2021 COMPARISON: Prior MRI brain June 24, 2018 HISTORY: Vertigo for several weeks. TECHNIQUE: Multiplanar, multisequence imaging of the brain and brainstem is performed without IV cont rast. FINDINGS: Diffusion weighted images demonstrate no evidence of a recent infarct or other diffusion abnormality. The ventricular system and cisternal spaces remain normal in size and appearance. The brain volume i s age appropriate. A few small scattered foci of T2 hyperintensity are redemonstrated bilaterally. Ap proximately 5-10 tiny scattered lesions again seen and stable. Lesions are nonspecific in appearance and distribution. No increased fluid signal bilateral mastoid air cells. Midline structures redemonstrate normal morphology. The craniocervical junction appears within sofía l limits. Normal vascular flow voids are present. Dominant left vertebral artery redemonstrated. Stab le small mucous retention cyst or polyp inferior right maxillary sinus axial image 4. The visualized sinuses otherwise are clear and the globes are intact. IMPRESSION: Mild to minimal nonspecific white matter changes redemonstrated. No significant progressi on or change from 2019 MRI.
== END | disposition home or self-care (01) ==
LOC: RADMRIMAIN 15:47
PROVIDERS: ATTEND Internal Medicine
DX: R90.89 Other abnormal findings on diagnostic imaging of central nervous system (principal)
CPT/HCPCS: 70551

== ENCOUNTER → 2021-08-22 | Outpatient (CLI) | payer MEDICARE ==
[2021-08-22 18:23] LABS: C Reactive Protein 0.3 mg/dL (0.00-0.80)
[2021-08-23 01:32] LABS: DNA Double-Stranded NEGATIVE (NEGATIVE)
== END | disposition home or self-care (01) ==
LOC: LABWHC1 09:28
PROVIDERS: ATTEND Internal Medicine Rheumatology
DX: M32.9 Systemic lupus erythematosus, unspecified (principal); D84.1 Defects in the complement system; Z79.899 Other long term (current) drug therapy; Z79.52 Long term (current) use of systemic steroids
CPT/HCPCS: 36415; 85652; 86140; 86160; 86225; 86334

== ENCOUNTER → 2021-10-10 | Outpatient (CLI) | payer MEDICARE, OTHER ==
--- NOTE | 2021-10-10 18:39 | CT ---
INDICATION: Patient age:Female; 56 years old; Reason for study: [facility] Protocol for hip/knee replacement, aseptic necrosis of bone. COMPARISON: Right knee radiograph 04/04/2020 TECHNIQUE: Thin section axial CT imaging of the entire right lower extremity was performed per [facility] protocol, wi thout the administration of IV contrast. FINDINGS: No evidence of dislocation. There is subchondral sclerosis and lucency of the right femoral head with minimal subchondral collapse of 1 mm. Subchondral sclerosis and lucency of the posterior femoral condyles. Osteoarthritic changes of the me dial and lateral tibiofemoral joints with joint space narrowing, sclerosis, and subchondral cysts. Th is is most prominent involving the medial tibiofemoral joint. Post surgical changes with 2 screws fixating the medial malleolus and fixation plate and multiple scr ews involving the distal fibula. Hardware appears intact. Ankle mortise is intact. The visualized soft tissues appear grossly unremarkable within the limits of unenhanced CT. IMPRESSION: 1. 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 2. Avascular necrosis involving the posterior femoral condyles. 3. Post surgical changes of the ankle.
== END | disposition home or self-care (01) ==
LOC: RADCTMAIN 15:26
PROVIDERS: ATTEND Orthopaedic Surgery
DX: M87.08 Idiopathic aseptic necrosis of bone, other site (principal)

== ENCOUNTER 2022-01-06 08:49 | Emergency (ER) | payer MEDICARE, OTHER ==
[2022-01-06 08:54] VITALS: BP 124/82; PULSE 75; TEMP 98
--- NOTE | 2022-01-06 09:13 | ED ---
General Adult HPI - General Chief complaint: Upper Respiratory Infection Stated complaint: sore throat Time Seen by Provider: 01/06/22 09:00 Source: patient, RN notes reviewed, old records reviewed Mode of arrival: ambulatory Limitations: no limitations - History of Present Illness Initial comments: This is a 56-year-old female presents emergency Department with a past medical history significant for lupus. Patient comes in complaining of a sore throat. Patient states been ongoing for a week. Patient states she has a lot of drainage and she believes it is causing her sore throat. Patient states she wants to commit make sure she doesn't have a bacterial infection. Patient states she doesn't want take a antibiotics unless it's necessary. Patient denies any fever chills. Patient denies any difficulty breathing shortness of breath. Patient denies any other symptoms at this time. - Related Data Home Medications Medication Instructions Recorded Confirmed Cholecalciferol (Vitamin D3) 2,000 unit PO DAILY 02/13/18 07/12/20 [Vitamin D3] Levothyroxine Sodium [Synthroid] 25 mcg PO RONDON 02/13/18 07/12/20 predniSONE 10 mg PO QAM 02/13/18 07/12/20 Benlysta Infusion 1 dose IV Q30D 07/10/20 07/12/20 Calcitrate 1 tab PO DAILY 07/10/20 07/12/20 Dorzolamide 2% [Trusopt 2%] 1 drops BOTH EYES BID 07/10/20 07/12/20 Folic Acid 1 mg PO DAILY 07/10/20 07/12/20 Hydroxychloroquine Sulfate 200 mg PO BID 07/10/20 07/12/20 [Plaquenil] Latanoprost/Pf [Latanoprost 0.005% 1 drop BOTH EYES HS 07/10/20 07/12/20 Eye Drop] Levothyroxine Sodium 50 mcg PO MOTUWETHFRSA 07/10/20 07/12/20 Metoprolol Succinate (ER) [Toprol 50 mg PO QAM 07/10/20 07/12/20 Xl] Pravastatin Sodium [Pravachol] 10 mg PO HS 07/10/20 07/12/20 Previous Rx's Medication Instructions Recorded Fluticasone Nasal [place] [Flonase 2 spray EA NOSTRIL DAILY #16 gm 01/06/22 Nasal [place]] Allergies Allergy/AdvReac Type Severity Reaction Status Date / Time egg Allergy Anaphylaxis Verified 01/06/22 08:53 leflunomide Allergy Rash/Hives Verified 01/06/22 08:53 mycophenolate mofetil Allergy mouth Verified 01/06/22 08:53 [From CellCept] sores,dyspnea,rash Review of Systems ROS Statement: Those systems with pertinent positive or pertinent negative responses have been documented in the HPI. ROS Other: All systems not noted in ROS Statement are negative. Past Medical History Past Medical History: Hypertension, Rheumatoid Arthritis (RA), Thyroid Disorder Additional Past Medical History / Comment(s): abnormal transaminases, connective tissue disease overlap syndrome, Lupus History of Any Multi-Drug Resistant Organisms: None Reported Past Surgical History: Hysterectomy, Orthopedic Surgery Additional Past Surgical History / Comment(s): right ankle surgery Past Anesthesia/Blood Transfusion Reactions: No Reported Reaction Past Psychological History: No Psychological Hx Reported Smoking Status: Former smoker Past Alcohol Use History: None Reported Past Drug Use History: Marijuana - Past Family History Mother Family Medical History: No Reported History General Exam - General Exam Comments Initial Comments: GENERAL: Patient is well-developed and well-nourished. Patient is nontoxic and well- hydrated and is in mild distress. ENT: Neck is soft and supple. No significant lymphadenopathy is noted. Oropharynx is clear. There is a little postnasal drip on the posterior pharynx Moist mucous membranes. Neck has full range of motion without eliciting any pain. EYES: The sclera were anicteric and conjunctiva were pink and moist. Extraocular movements were intact and pupils were equal round and reactive to light. Eyelids were unremarkable. SKIN: Skin is clear with no lesions or rashes and otherwise unremarkable. NEUROLOGIC: Patient is alert and oriented x3. Cranial nerves II through XII are grossly intact. Motor and sensory are also intact. Normal speech, volume and content. Symmetrical smile. MUSCULOSKELETAL: Normal extremities with adequate strength and full range of motion. PSYCHIATRIC: Normal psychiatric evaluation. Limitations: no limitations Course Vital Signs 01/06/22 01/06/22 08:51 09:16 Temperature 98 F Pulse Rate 75 Respiratory 20 18 Rate Blood Pressure 124/82 O2 Sat by Pulse 99 Oximetry Medical Decision Making - Lab Data Lab Results 01/06/22 01/06/22 Range/Units 09:22 09:30 Coronavirus (PCR) Not Detected (Not Detectd) Group A Strep (PCR) NOT DETECTED (Not Detectd) Disposition Clinical Impression: Acute upper respiratory infection Disposition: HOME SELF-CARE Condition: Good Instructions (If sedation given, give patient instructions): Upper Respiratory Infection (ED) Prescriptions: Fluticasone Nasal [place] [Flonase Nasal [place]] 2 spray EA NOSTRIL DAILY #16 gm Is patient prescribed a controlled substance at d/c from ED?: No Referrals: Bekah Kimble MD [Primary Care Provider] - 1-2 days Time of Disposition: 10:50
[2022-01-06 09:20] VITALS: RESP 18
== END 2022-01-06 10:59 | disposition home or self-care (01) ==
LOC: EC 08:49
DX: J06.9 Acute upper respiratory infection, unspecified (principal); Z20.822 Contact with and (suspected) exposure to COVID-19; I10 Essential (primary) hypertension; E07.9 Disorder of thyroid, unspecified; Z91.012 Allergy to eggs; Z88.9 Allergy status to unspecified drugs, medicaments and biological substances; Z88.8 Allergy status to other drugs, medicaments and biological substances; Z87.891 Personal history of nicotine dependence
CPT/HCPCS: 87635; 87651; 99283

== ENCOUNTER → 2022-01-23 | Outpatient (CLI) | payer MEDICARE, OTHER ==
[2022-01-23 09:53] LABS: INR 0.9 (<1.2); Partial Thromboplastin Time 23.7 sec (22.0-30.0); Prothrombin Time 10.3 sec (9.0-12.0)
[2022-01-23 15:30] LABS: African American GFR (CKD) 86.1 (60.0-200.0); Albumin 4.1 g/dL (3.8-4.9); Albumin/Globulin Ratio 1.72 (1.60-3.17); Anion Gap 9.4 mmol/L (10.00-18.00); BUN/Creat Ratio 12.16 Ratio (12.00-20.00); Blood Urea Nitrogen 10.6 mg/dL (9.0-27.0); Calcium 9.3 mg/dL (8.7-10.3); Carbon Dioxide 28.6 mmol/L (20.0-27.5); Globulin 2.4 g/dL (1.6-3.3); Non-African American GFR(CKD) 74.3 (60.0-200.0); Potassium 3.3 mmol/L (3.5-5.5); Total Bilirubin 0.2 mg/dL (0.30-1.20); Total Protein 6.5 g/dL (6.2-8.2)
[2022-01-23 16:58] LABS: Appearance,Urine Clear (Clear); Bilirubin,Urine Negative (Negative); Blood,Urine Negative (Negative); Color,Urine Yellow (Yellow); Ketones,Urine Negative (Negative); Nitrite,Urine Negative (Negative); PH, Urine 6.5 (5.0-8.0); Specific Gravity,Urine 1.018 (1.001-1.030); Urobilinogen,Urine 0.2 (0.2,1.0)
[2022-01-23 17:04] LABS: Bacteria,Urine None Seen /HPF (None Seen)
== END | disposition home or self-care (01) ==
LOC: LABPAT 08:41
PROVIDERS: ATTEND Orthopaedic Surgery
DX: Z01.812 Encounter for preprocedural laboratory examination (principal); M17.11 Unilateral primary osteoarthritis, right knee
CPT/HCPCS: 80053; 81001; 85610; 85730; 87070

== ENCOUNTER → 2022-01-23 | Outpatient (CLI) | payer MEDICARE, OTHER ==
[2022-01-23 16:40] LABS: Basophils # (A) 0.04 X 10*3/uL (0.00-0.10); Basophils % (A) 0.7 %; Eosinophils % (A) 1.8 %; HCT 41.9 % (37.2-46.3); HGB 13.6 g/dL (12.0-15.0); Immature Grans, Automated 0.4 %; Lymphocytes # (A) 1.94 X 10*3/uL (0.90-5.00); Lymphocytes % (A) 34.6 %; MCH 30.8 pg (27.0-32.0); MCHC 32.5 g/dL (32.0-37.0); MCV 94.8 fL (80.0-97.0); Mean Platelet Volume 13.8 fL (9.5-12.2); Monocytes # (A) 0.39 X 10*3/uL (0.20-1.00); NRBC Per 100 WBC 0 /100 WBCS (0.0-0.0); Neutrophils # (A) 3.12 X 10*3/uL (1.80-7.70); Neutrophils % (A) 55.5 %; Platelet Count 142 X 10*3/uL (140-440); RBC 4.42 X 10*6/uL (4.10-5.20); RDW 14.2 % (11.5-14.5); WBC 5.61 X 10*3/uL (4.50-10.00)
[2022-01-23 16:47] LABS: Erythrocyte Sedimentation Rate 10 mm/Hr (0-30)
== END | disposition home or self-care (01) ==
LOC: LABWHC1 08:39
PROVIDERS: ATTEND Internal Medicine Rheumatology
DX: D84.1 Defects in the complement system (principal); M32.9 Systemic lupus erythematosus, unspecified; Z79.52 Long term (current) use of systemic steroids; Z79.899 Other long term (current) drug therapy
CPT/HCPCS: 36415; 85025; 85652; 86140

== ENCOUNTER → 2022-07-02 | Outpatient (CLI) | payer MEDICARE ==
[2022-07-02 16:53] LABS: African American GFR (CKD) 94.9 (60.0-200.0); Albumin 4.4 g/dL (3.8-4.9); Blood Urea Nitrogen 11.4 mg/dL (9.0-27.0); Non-African American GFR(CKD) 81.8 (60.0-200.0); Total Bilirubin 0.3 mg/dL (0.30-1.20)
[2022-07-02 16:57] LABS: Basophils # (A) 0.05 X 10*3/uL (0.00-0.10); Basophils % (A) 0.9 %; Eosinophils # (A) 0.12 X 10*3/uL (0.04-0.35); Eosinophils % (A) 2.1 %; HCT 42.9 % (37.2-46.3); HGB 13.8 g/dL (12.0-15.0); Immature Grans, Automated 0.2 %; Lymphocytes # (A) 1.53 X 10*3/uL (0.90-5.00); Lymphocytes % (A) 27.1 %; MCH 30.1 pg (27.0-32.0); MCHC 32.2 g/dL (32.0-37.0); MCV 93.5 fL (80.0-97.0); Mean Platelet Volume 13.8 fL (9.5-12.2); Monocytes # (A) 0.55 X 10*3/uL (0.20-1.00); Monocytes % (A) 9.8 %; NRBC Per 100 WBC 0 /100 WBCS (0.0-0.0); Neutrophils # (A) 3.38 X 10*3/uL (1.80-7.70); Neutrophils % (A) 59.9 %; Platelet Count 140 X 10*3/uL (140-440); RBC 4.59 X 10*6/uL (4.10-5.20); RDW 13.6 % (11.5-14.5); WBC 5.64 X 10*3/uL (4.50-10.00)
[2022-07-02 17:11] LABS: Erythrocyte Sedimentation Rate 6 mm/Hr (0-30)
[2022-07-02 18:03] LABS: C Reactive Protein 0.3 mg/dL (0.00-0.80)
[2022-07-02 19:21] LABS: Appearance,Urine Turbid (Clear); Bacteria,Urine Trace /HPF (None Seen); Bilirubin,Urine Negative (Negative); Blood,Urine Negative (Negative); Calcium Oxalate Crystals,Urine Present /LPF (None Seen); Color,Urine Dark Yellow (Yellow); Ketones,Urine Trace mg/dL (Negative); Nitrite,Urine Negative (Negative); PH, Urine 5.5 (5.0-8.0); Specific Gravity,Urine 1.031 (1.001-1.030)
[2022-07-02 21:52] LABS: Anti-DNA, DS unit <1.0 IU/mL; DNA Double-Stranded NEGATIVE (NEGATIVE)
== END | disposition home or self-care (01) ==
LOC: LABWHC1 08:49
PROVIDERS: ATTEND Internal Medicine Rheumatology
DX: D84.1 Defects in the complement system (principal); M32.9 Systemic lupus erythematosus, unspecified; Z79.899 Other long term (current) drug therapy; Z79.52 Long term (current) use of systemic steroids
CPT/HCPCS: 36415; 81001; 82040; 82247; 82565; 84075; 84450; 84460; 84520; 85025; 85652; 86140; 86160; 86225

== ENCOUNTER → 2022-07-09 | Outpatient (CLI) | payer MEDICARE ==
--- NOTE | 2022-07-10 08:20 | MM ---
Reason for Exam: Screening (asymptomatic). Baseline mammogram. Patient History: Menarche at age 13. First Full-Term at age 17. Left ovary removed at age 35. Right ovary removed at age 35. Hysterectomy at age 35. Postmenopausal. Maternal grandmother had breast cancer at or over age 50. Risk Values: Isis 5 year model risk: 0.9%. NCI Lifetime model risk: 5.7%. Prior Study Comparison: Patient's first Mammogram. Tissue Density: There are scattered fibroglandular densities. Findings: Analyzed By CAD. There is no suspicious group of microcalcifications or new suspicious mass in either breast. Overall Assessment: Negative, BI-RAD 1 Management: Screening Mammogram of both breasts in 1 year. A clinical breast exam by your physician is recommended on an annual basis and results should be correlated with mammographic findings. [facility] will attempt to contact patient to return for supplemental views and ultrasound if indicated. Electronically signed and approved by: Jimmie Tomlinson DO
== END | disposition home or self-care (01) ==
LOC: RADMAMWWP 10:14
PROVIDERS: ATTEND Family Medicine
DX: Z12.31 Encounter for screening mammogram for malignant neoplasm of breast (principal); Z78.0 Asymptomatic menopausal state; Z80.3 Family history of malignant neoplasm of breast
CPT/HCPCS: 77063; 77067

== ENCOUNTER → 2022-12-04 | Outpatient (CLI) | payer MEDICARE ==
--- NOTE | 2022-12-04 19:30 | XR ---
EXAMINATION TYPE: XR Hip RT and AP Pelvis DATE OF EXAM: 12/04/2022 5:25 PM CLINICAL INDICATION:Female, 57 years old with history of M25.551; PHH COMPARISON: None. TECHNIQUE: The right hip was examined in the frontal and lateral projections and a AP pelvis. FINDINGS: No evidence for acute process, joint dislocation or significant soft tissue swelling. Osteo phyte formation of the superior acetabulum of the hip. IMPRESSION: 1. No evidence for acute process. 2. Mild hip osteoarthrosis.
== END | disposition home or self-care (01) ==
LOC: RADXRMAIN 17:12
PROVIDERS: ATTEND Family Medicine
DX: M16.11 Unilateral primary osteoarthritis, right hip (principal)
CPT/HCPCS: 73502

== ENCOUNTER → 2023-02-20 | Outpatient (CLI) | payer OTHER ==
--- NOTE | 2023-02-20 10:34 | XR ---
EXAMINATION TYPE: XR lumbar spine 2 or 3V DATE OF EXAM: 02/20/2023 CLINICAL HISTORY: pain TECHNIQUE: Three views of the lumbar spine are submitted. COMPARISON: None. FINDINGS: There are 5 lumbar type vertebral bodies identified. The lumbar spine shows satisfactory alignment w ithout evidence of acute fracture or dislocation. Vertebral body heights are within normal limits. Severe narrowing at L5-S1. Ventral spondylosis and mild facet joint arthropathy. Mild curvature conv ex to the right. The overlying soft tissue appears unremarkable. IMPRESSION: No acute fracture or dislocation is seen in the lumbar spine. ICD 10 NO FRACTURE, INITIAL EVALUATION
== END | disposition home or self-care (01) ==
LOC: RADXRMAIN 10:01
PROVIDERS: ATTEND Family Medicine
DX: M54.50 Low back pain, unspecified (principal)
CPT/HCPCS: 72100

== ENCOUNTER → 2023-12-03 | Outpatient (CLI) | payer OTHER ==
--- NOTE | 2023-12-03 13:58 | XR ---
EXAMINATION TYPE: XR Hip Complete RT DATE OF EXAM: 12/03/2023 COMPARISON: None HISTORY: Systemic lupus erythema TECHNIQUE: 2 view right hip FINDINGS: Femoral head articulates with the acetabulum. The femoral head surface appears irregular. J oint space is preserved. No acute fractures are evident. IMPRESSION: 1. Irregular surface of the humeral head can be compatible with degenerative changes. 2. No acute fracture evident. [facility], , 12/03/2023 1:56 PM
--- NOTE | 2023-12-05 21:09 | XR ---
EXAMINATION TYPE: XR pelvis AP view DATE OF EXAM: 12/03/2023 COMPARISON: None HISTORY: Lupus TECHNIQUE: AP pelvis FINDINGS: Femoral heads articulate with the acetabulum. Femoral head appears to have some mild deform ity present along the articular surfaces. Symphysis pubis and sacroiliac joints are normal. No acute fractures are evident. IMPRESSION: 1. There is some irregularity of the articular surfaces of the femoral heads. 2. Acute osseous abnormality radiographically. [facility], , 12/05/2023 9:07 PM
== END | disposition home or self-care (01) ==
LOC: RADXRMAIN 09:25
PROVIDERS: ATTEND Internal Medicine Rheumatology
DX: M32.9 Systemic lupus erythematosus, unspecified (principal); D84.1 Defects in the complement system; Z79.52 Long term (current) use of systemic steroids; Z79.899 Other long term (current) drug therapy
CPT/HCPCS: 72170; 73502

== ENCOUNTER → 2023-12-03 | Outpatient (CLI) | payer OTHER | END | disposition home or self-care (01) | LOC: LABWHC1 09:49 | PROVIDERS: ATTEND Internal Medicine Rheumatology | DX: M32.9 Systemic lupus erythematosus, unspecified (principal); D84.1 Defects in the complement system; Z79.52 Long term (current) use of systemic steroids; Z79.899 Other long term (current) drug therapy | CPT/HCPCS: 36415; 86334 ==

== ENCOUNTER → 2024-01-15 | Outpatient (CLI) | payer OTHER ==
--- NOTE | 2024-01-15 14:35 | MM ---
Reason for Exam: Screening (asymptomatic). Last mammogram was performed 1 year(s) and 6 month(s) ago. Patient History: Menarche at age 13. First Full-Term at age 17. Left ovary removed at age 35. Right ovary removed at age 35. Hysterectomy at age 35. Postmenopausal. Maternal grandmother had breast cancer at or over age 50. Risk Values: Isis 5 year model risk: 1.4%. NCI Lifetime model risk: 7.3%. Prior Study Comparison: 07/09/2022 Bilateral MG 3D screening mammo w/cad, [facility]. Tissue Density: There are scattered areas of fibroglandular density. Findings: Analyzed By CAD. There is no suspicious group of microcalcifications or new suspicious mass in either breast. Overall Assessment: Negative, BI-RAD 1 Management: Screening Mammogram of both breasts in 1 year. . Patient should continue monthly self-breast exams. A clinical breast exam by your physician is recommended on an annual basis. This exam should not preclude additional follow-up of suspicious palpable abnormalities. Note on Isis scores and lifetime risk: 1. A Isis score greater than 3% is considered moderate risk. If this is the case, consider specialist referral to assess eligibility for a risk reducing agent. 2. If overall lifetime risk for the development of breast cancer is 20% or higher, the patient may qualify for future screening with alternating mammogram and breast MRI. [facility], , 01/15/2024 2:32 PM. Electronically signed and approved by: Ame Cowan M.D. Radiologist
== END | disposition home or self-care (01) ==
LOC: RADMAMWWP 07:21
PROVIDERS: ATTEND Internal Medicine Geriatric Medicine
CPT/HCPCS: 77063; 77067

== ENCOUNTER → 2024-03-18 | Outpatient (CLI) | payer OTHER ==
--- NOTE | 2024-03-19 18:19 | BD ---
EXAMINATION TYPE: Axial Bone Density DATE OF EXAM: 03/18/2024 CLINICAL HISTORY: 58 years old Female. ICD-10 CODE: M81.0 AGE RELATED OSTEO , Additional History: Height: 65.75 Weight: 161.7 FRAX RISK QUESTIONS: Alcohol (3 or more units per day): no Family History (Parent hip fracture): Father Glucocorticoids (More than 3mos): Prednisone past 6 years (Ex: prednisone, prednisolone, methylprednisolone, dexamethasone, and hydrocortisone). History of Fracture in Adulthood: ankle Secondary Osteoporosis: 1. Type 1 Diabetes: no 2. Hyperthyroidism: no 3. Menopause before 45: yes 4. Malnutrition: no 5. Chronic liver disease: no Rheumatoid Arthritis: yes Current Tobacco Use: no RISK FACTORS HISTORY OF: Hip Fracture (Right/Left): no Spine Fracture: no History of Wrist Fracture: no Surgery to Spine/Hip(right/left)/Wrist (right/left): no MEDICATIONS: Thyroid Medications: Levothyroxine How Long: Past 5 years Osteoporosis Medications: no EXAM MEASUREMENTS: Bone mineral densitometry was performed using the [employer] System. Bone mineral density as measured about the Lumbar spine is: ----- L1-L4(G/cm2): 0.984 T Score Values are as follows: ----- L1: -1.6 ----- L2: -1.5 ----- L3: -1.6 ----- L4: -1.9 ----- L1-L4: -1.6 Z Score Values are as follows: ----- L1: -1.4 ----- L2: -1.4 ----- L3: -1.5 ----- L4: -1.8 ----- L1-L4: -1.5 Baseline Study (2019 study is not available for comparison). Bone mineral density about the R hip (g/cm2): 0.669 Bone mineral density about the L hip (g/cm2): 0.766 T Score values are as follows: -----R Neck: -2.7 -----L Neck: -2.2 -----R Total: -2.7 -----L Total: -1.9 Z Score values are as follows: -----R Neck: -3.0 -----L Neck: -2.2 -----R Total: -2.6 -----L Total: -2.1 Baseline Study FRAX%s: The graph provided illustrates a 19.7% chance for a major osteoporotic fx and a 5.5% chance f or the hips probability for fx in 10 years time. IMPRESSION: Osteoporosis (T Score less than -2.5). There is increased fracture risk and therapy is usually indicated based on age. Re-Screen 1-2 years. NOTE: T-SCORE=SD OF THE YOUNG ADULT MEAN. [facility], , 03/19/2024 6:17 PM
== END | disposition home or self-care (01) ==
LOC: RADBDWWP 08:51
PROVIDERS: ATTEND Internal Medicine Geriatric Medicine
DX: M81.0 Age-related osteoporosis without current pathological fracture (principal)
CPT/HCPCS: 77080

== ENCOUNTER → 2024-05-31 | Outpatient (CLI) | payer OTHER ==
[2024-05-31 15:18] LABS: Hepatitis C IgG Antibody Nonreactive (Nonreactive)
[2024-05-31 15:19] LABS: Hepatitis B Surface Antigen Nonreactive (Nonreactive)
[2024-05-31 15:26] LABS: HCT 43.2 % (37.2-46.3); HGB 14.5 g/dL (12.0-15.0); MCH 30.9 pg (27.0-32.0); MCHC 33.6 g/dL (32.0-37.0); MCV 92.1 FL (80.0-97.0); Mean Platelet Volume 13.1 FL (9.5-12.2); NRBC Per 100 WBC 0 X 10*3/uL (0.00-0.01); Platelet Count 176 X 10*3/uL (140-440); RBC 4.69 X 10*6/uL (4.10-5.20); RDW 13.4 % (11.5-14.5)
[2024-05-31 15:27] LABS: Basophils # (A) 0.04 X 10*3/uL (0.00-0.10); Basophils % (A) 0.7 %; Eosinophils # (A) 0.12 X 10*3/uL (0.04-0.35); Eosinophils % (A) 2.2 %; Lymphocytes # (A) 1.43 X 10*3/uL (0.90-5.00); Monocytes # (A) 0.74 X 10*3/uL (0.20-1.00); Monocytes % (A) 13.5 %; Neutrophils # (A) 3.16 X 10*3/uL (1.80-7.70); Neutrophils % (A) 57.4 %
[2024-05-31 15:56] LABS: Anti-DNA, DS unit <1.0 IU/mL; Cardiolipin Ab IgG Interp Negative (Negative); Cardiolipin Ab IgM Interp Negative (Negative); Cardiolipin IgM Antibody <1.5 U/mL; DNA Double-Stranded Negative (Negative)
[2024-05-31 16:08] LABS: Erythrocyte Sedimentation Rate 21 mm/Hr (0-30)
[2024-05-31 16:14] LABS: ALT 12 U/L (8-44); AST 22 U/L (13-35)
[2024-05-31 16:15] LABS: Albumin 4.5 g/dL (3.8-4.9); Alkaline Phosphatase 77 U/L (41-126); Bilirubin, Conjugated <0.20 mg/dL (0.20-0.40); Bilirubin,Unconjugated >0.10 mg/dL (0.20-1.00); C Reactive Protein <0.30 mg/dL (0.00-0.80); Total Bilirubin 0.3 mg/dL (0.3-1.2)
== END | disposition home or self-care (01) ==
LOC: LABWHC1 08:18
PROVIDERS: ATTEND Internal Medicine Rheumatology
DX: M32.9 Systemic lupus erythematosus, unspecified (principal); D84.1 Defects in the complement system; M54.50 Low back pain, unspecified; M25.551 Pain in right hip; Z79.52 Long term (current) use of systemic steroids; Z79.899 Other long term (current) drug therapy
CPT/HCPCS: 36415; 82040; 82043; 82248; 82565; 82570; 84075; 84450; 84460; 84520; 85025; 85652; 86140; 86147; 86160; 86225; 86480; 86704; 86803; 87340